=== PATIENT | female | born 1990 | race Caucasian/White ===

== ENCOUNTER 2023-08-23 15:04 | Emergency (ER) | payer OTHER ==
[2023-08-23 16:17] LABS: #Eosinphils 0.1 10x3/uL (0.0-0.5); #Monocytes 0.7 10x3/uL (0.0-1.1); #Neutrophils 3.8 10x3/uL (1.5-8.4); %Basophils 0.3 % (0.0-2.0); %Lymphocytes 23.1 % (18.0-47.0); %Monocytes 11.5 % (0.0-10.0); %Neutrophils 62.9 % (40.0-75.0); Hematocrit 40.7 % (34.9-44.5); Mean Corpuscular HGB CONC 34.4 g/dL (32.0-36.0); Mean Corpuscular Hemoglobin 31.2 pg (27.0-33.0); Mean Corpuscular Volume 90.6 fl (81.6-98.3); Mean Platelet Volume 10.5 fl (7.4-10.4); Platelet Count 178 10x3/uL (150-450); RBC Distribution Width 12.2 % (11.5-14.5); Red Blood Cell (RBC) Count 4.49 10x6/uL (3.90-5.03)
[2023-08-23 16:32] LABS: ALT (SGPT) 171 U/L (8-55); AST (SGOT) 60 U/L (5-34); Albumin 3.9 g/dL (3.5-5.0); Alkaline Phosphatase 61 U/L (40-110); Anion Gap 12 mmol/L (10-20); BUN (Urea Nitrogen) 15 mg/dL (7.0-18.7); Bilirubin, Total 0.3 mg/dL (0.2-1.2); Calc. Creatinine Clearance 0 mL/min (70-130); Calcium 8.8 mg/dL (7.8-10.44); Carbon Dioxide 23 mmol/L (22-29); Chloride 109 mmol/L (98-107); Estimated GFR 109; Globulin 2.5 g/dL (2.4-3.5); Glucose 95 mg/dL (70-105); Lipase 24 U/L (8-78); Potassium 4.3 mmol/L (3.5-5.1); Protein, Total 6.4 g/dL (6.0-8.3); Sodium 140 mmol/L (136-145)
[2023-08-23 17:27] LABS: Bilirubin Neg (Negative); Blood, Urine Negative (Negative); Clarity Clear (Clear); Glucose, Urine (Dipstick) Normal (Negative); Ketone, Urine Negative (Negative); Leukocyte Negative (Negative); Nitrite Negative (Negative); Protein, Urine (Dipstick) 15 mg/dl (Neg-Trace); Specific Gravity, Urine 1.025 (1.005-1.030)
[2023-08-23 17:35] LABS: Pregnancy Test - Urine (BHCG) Negative (Negative); Pregu Control Background? CLEAR/WHITE (CLR/WHITE); Pregu Control Bar Appear? YES (CONTROL BAR); Specific Gravity 1.025 (1.002-1.036)
[2023-08-23] MEDS ORDERED: Dexamethasone 10 MG/ML VIAL ONE (17:42)
[2023-08-23 17:50] LABS: Bacteria/HPF 3+ HPF (None Seen); CAUTI Indications for Culture Alt mental st,lethar; Mucous/LPF 3+ LPF (<2+); RBC/HPF None Seen HPF (0-3); WBC/HPF 0-3 HPF (0-3)
[2023-08-23 17:51] LABS: Urine Culture Reflex No No
[2023-08-23 18:35] LABS: SARS-CoV-2 NAA Rapid Test Not Detected (NotDetected)
[2023-08-23] MEDS ORDERED: Ondansetron PF 4 MG/2 ML Vial ONE (19:08)
== END 2023-08-23 19:58 | disposition home or self-care (01) ==
LOC: CSHERS 15:04
DX: R11.2 Nausea with vomiting, unspecified (principal); F41.9 Anxiety disorder, unspecified; R50.9 Fever, unspecified
CPT/HCPCS: 36415; 36416; 80053; 81001; 81025; 83690; 85025; 96361; 96374; J1100; J2405